=== PATIENT | female | born 2000 | race Two or more races ===

== ENCOUNTER 2023-08-03 14:17 | Emergency (ER) | payer OTHER ==
[2023-08-03 14:25] VITALS: BMI 21.5
[2023-08-03 15:08] LABS: BASO % 0.2 % (0-2.0); EOS % 0.1 % (0-4.5); HEMOGLOBIN 13.1 GM/dL (10.7-15.3); LYMPH % 5.9 % (8-40); MCH 29.8 pg (25.7-33.7); MCHC 33.5 g/dl (32.0-36.0); MEAN CELL VOLUME 88.8 fl (80-96); MEAN PLT VOLUME 8.5 fl (7.5-11.1); MONO % 6.5 % (3.8-10.2); NEUT % 87.3 % (42.8-82.8); PLATELET COUNT 252 10^3/uL (134-434); RBC 4.39 M/mm3 (3.60-5.2); RDW 14.4 % (11.6-15.6); WHITE BLOOD COUNT 18.6 K/mm3 (4.0-10.0)
[2023-08-03] MEDS ORDERED: KETOROLAC TROMETHAMINE 15 MG/ML VIAL ONE (15:08)
[2023-08-03] MEDS ORDERED: ACETAMINOPHEN INJECTION 100 ML IVPB ONE (15:08)
[2023-08-03] MEDS ORDERED: DEXAMETHASONE SOD PHOSPHATE 10 MG/1 ML VIAL ONE (15:08)
[2023-08-03 15:25] LABS: POTASSIUM 4.2 mmol/L (3.5-5.1)
[2023-08-03 15:26] LABS: CALCIUM 9.6 mg/dL (8.5-10.1)
[2023-08-03 15:27] LABS: ALBUMIN 4.1 g/dl (3.4-5.0); BLOOD UREA NITROGEN 12.4 mg/dL (7-18)
[2023-08-03] MEDS: ACETAMINOPHEN 1000 MG/100 ML BAG IVPB ONE (15:28)
[2023-08-03] MEDS: SODIUM CHLORIDE 0.9% 500 ML INFUS.BAG IV ONE ×2 (15:28→17:58)
[2023-08-03] MEDS: KETOROLAC TROMETHAMINE 15 MG/ML VIAL IVPUSH ONE (15:28)
[2023-08-03] MEDS: DEXAMETHASONE SOD PHOSPHATE 10 MG/1 ML VIAL IVPUSH ONE (15:28)
[2023-08-03 15:32] LABS: BILIRUBIN,TOTAL 0.8 mg/dL (0.2-1)
[2023-08-03 15:36] LABS: CREATININE 0.7 mg/dL (0.55-1.3)
[2023-08-03 17:32] VITALS: RESP 18
[2023-08-03 17:43] VITALS: BP 99/50; PULSE 72
[2023-08-03] MEDS: CLINDAMYCIN 900 MG PREMIX IVPB 900 MG/50 ML BAG IVPB ONE (17:52)
[2023-08-03 18:15] VITALS: TEMP 98.2
== END 2023-08-03 19:32 | disposition short-term general hospital (02) ==
LOC: JER 14:17
PROC: 3E03329 Introduction of Other Anti-infective into Peripheral Vein, Percutaneous Approach (ICD-10-PCS; principal; 2023-08-03)
PROC: 3E033NZ Introduction of Analgesics, Hypnotics, Sedatives into Peripheral Vein, Percutaneous Approach (ICD-10-PCS; 2023-08-03)
PROC: 3E0333Z Introduction of Anti-inflammatory into Peripheral Vein, Percutaneous Approach (ICD-10-PCS; 2023-08-03)
PROC: 3E033GC Introduction of Other Therapeutic Substance into Peripheral Vein, Percutaneous Approach (ICD-10-PCS; 2023-08-03)
DX: J36 Peritonsillar abscess (principal)
CPT/HCPCS: 36415; 70491-TC; 80053; 83605; 84703; 85025; 87040; 99285-25; J0131; J1100; Q9967